=== PATIENT | male | born 1975 | race Caucasian/White ===

== ENCOUNTER 2017-01-29 15:22 | Observation (INO) | payer MEDICARE ==
[2017-01-29 15:59] LABS: #Basophils 0.1 thou/uL (0.0-0.2); #Eosinphils 0.3 thou/uL (0.0-0.7); #Lymphocytes 3.2 thou/uL (1.20-3.40); #Monocytes 0.8 thou/uL (0.11-0.59); #Neutrophils 6.5 thou/uL (1.40-6.50); %Basophils 0.9 % (0.0-1.0); %Eosinophils 2.4 % (0.0-10.0); %Lymphocytes 29.7 % (21.0-51.0); %Monocytes 6.9 % (0.0-10.0); Hematocrit 50.3 % (42.0-52.0); Mean Platelet Volume 6.2 fL (7.4-10.4); Red Blood Cell (RBC) Count 5.35 mill/uL (4.70-6.10); White Blood Cell (WBC) Count 10.8 thou/uL (4.8-10.8)
--- NOTE | 2017-01-29 16:18 | RAD ---
RADIOGRAPH CHEST 1 VIEW: HISTORY: 41-year-old male with acute chest pain. FINDINGS: There is no air space density, pulmonary edema, or pneumothorax. The lateral costophrenic angles are sharp. There is a single lead left subclavian AICD. IMPRESSION: 1. No acute pulmonary findings. 2. Automatic implantable cardioverter-defibrillator. steph POS: CATE
[2017-01-29 16:33] LABS: Troponin I Less than 0.010 ng/mL (< 0.028)
[2017-01-29 16:36] LABS: ALT (SGPT) 24 U/L (8-55); AST (SGOT) 28 U/L (5-34); Alkaline Phosphatase 66 U/L (40-150); Anion Gap 12 mmol/L (10-20); BUN (Urea Nitrogen) 11 mg/dL (8.9-20.6); Bilirubin, Total 0.3 mg/dL (0.2-1.2); CK (CPK) 96 U/L (30-200); Calc. Creatinine Clearance 0 mL/min (70-130); Calcium 9.7 mg/dL (7.8-10.44); Carbon Dioxide 23 mmol/L (22-29); Chloride 103 mmol/L (98-107); Estimated GFR-MDRD Greater than 90; Globulin 3.4 g/dL (2.4-3.5); Lipase 14 U/L (8-78); Protein, Total 7.4 g/dL (6.0-8.3)
[2017-01-29 17:36] LABS: Amphetamine Not Detected (NotDetected); Methadone Not Detected (NotDetected); Methamphetamine Not Detected (NotDetected)
[2017-01-29] MEDS ORDERED: Guaifenesin DM 100-10/5 ML UDCUP PO PRN (17:53)
[2017-01-29] MEDS ORDERED: Acetaminophen 325 MG TAB PO PRN (17:53)
[2017-01-29] MEDS ORDERED: Calcium Carbonate 500 MG ChewTAB PO PRN (17:53)
[2017-01-29] MEDS ORDERED: Nitroglycerin 0.4 MG TAB (25 Tab Bottle) PO PRN (17:53)
[2017-01-29] MEDS ORDERED: clonazePAM 0.5 MG TAB PO PRN (17:53)
[2017-01-29 18:56] VITALS: BMI 36.9
[2017-01-29 19:42] LABS: Troponin I Less than 0.010 ng/mL (< 0.028)
[2017-01-29] MEDS ORDERED: Morphine 4 MG/ML VIAL SLOW IVP PRN (19:52)
[2017-01-29] MEDS: Nitroglycerin 2% Ointment 1 INCH/1 GM Packet TOP SCH (20:30)
[2017-01-29] MEDS: Famotidine 20 MG TAB PO SCH (20:32)
[2017-01-29] MEDS: Sacubitril 49 MG/Valsartan 51 MG TABLET PO SCH (20:51)
[2017-01-29] MEDS ORDERED: Dronedarone HCl 400 MG TAB PO SCH (21:00)
--- NOTE | 2017-01-29 22:14 | HP ---
REASON FOR ADMISSION: Chest pain. HISTORY OF PRESENT ILLNESS: The patient gives history of having left-sided chest pain starting at 10:30 in the morning. This was getting worse with him moving around, but when he lay still, he had relief. No cough or expectoration. Patient states he is active and walks. He has a Fitbit monitor and states he takes nearly 3000 to 4000 steps every day. Patient has known history of cardiomyopathy with EF of around 35%. No complaints of palpitations , PND, or orthopnea. PAST MEDICAL AND SURGICAL HISTORY: History of cardiomyopathy with EF of around 35%, chronic atrial fibrillation, hypertension, bipolar disorder, obesity, prior cardiac catheterization done in 2012. He has had prior ablation for his atrial fibrillation, tonsillectomy, defibrillator, history of PTSD. CURRENT MEDICATIONS: Multaq 400 mg p.o. twice daily, venlafaxine extended release 75 mg p.o. daily, Entresto 49/51 mg p.o. twice daily, clonazepam 0.5 mg p.o. twice daily p.r.n., aspirin 81 mg p.o. daily, Naprosyn p.r.n. for pain, Coreg 3.125 mg p.o. twice daily, spironolactone 25 mg p.o. daily, Pepcid 20 mg p.o. twice daily, aripiprazole 10 mg p.o. daily. ALLERGIES: No known drug allergies. PERSONAL HISTORY: Smokes half pack a day, does not abuse alcohol or drugs. Quit abusing methamphetamine from 1997. He has used it for nearly 5 years prior to that. FAMILY HISTORY: Mother is healthy. He does not know much about his father. His uncles have history of heart disease. REVIEW OF SYSTEMS: The following complete review of systems was negative, unless otherwise mentioned in the HPI or below: Constitutional: Weight loss or gain, ability to conduct usual activities. Skin: Rash, itching. Eyes: Double vision, pain. ENT/Mouth: Nose bleeding, neck stiffness, pain, tenderness. Cardiovascular: Palpitations, dyspnea on exertion, orthopnea. Respiratory: Shortness of breath, wheezing, cough, hemoptysis, fever or night sweats. Gastrointestinal: Poor appetite, abdominal pain, heartburn, nausea, vomiting, constipation, or diarrhea. Genitourinary: Urgency, frequency, dysuria, nocturia. Musculoskeletal: Pain, swelling. Neurologic/Psychiatric: Anxiety, depression. Allergy/Immunologic: Skin rash, bleeding tendency. PHYSICAL EXAMINATION: GENERAL: Patient is a 41-year-old male who is currently not in any acute distress. VITAL SIGNS: Blood pressure 110/74, pulse 90 per minute, respiratory rate 20 per minute, temperature 98.2 degrees Fahrenheit, saturating 99% on room air. NECK: Supple. No elevated JVD. HEENT: Extraocular muscles intact. Pupils reacting to light. Oral cavity, mucous membranes are moist. No exudates or congestion. CARDIOVASCULAR: S1, S2 heard. Regular rhythm. RESPIRATORY: Air entry 1+ bilateral. No rales or rhonchi. ABDOMEN: Soft, bowel sounds heard. No tenderness, rigidity, or guarding. EXTREMITIES: No peripheral edema or calf tenderness. VASCULAR SYSTEM: Peripheral pulses 1+ bilateral. No ischemic ulcerations or gangrene. CENTRAL NERVOUS SYSTEM: No gross focal deficits seen. Patient is alert, awake , oriented x3. PSYCHIATRIC: The patient's mood is euthymic. No hallucinations or delusions. LABORATORY AND X-RAY FINDINGS: EKG done shows normal sinus rhythm at 92 beats per minute. There are Q-waves seen in V1, V2, V3 with poor R-wave progression. Urine drug screen is negative. Chest x-ray done shows no acute pulmonary findings. Sodium 134, potassium 4.4. Serum bicarbonate is 23, BUN 11, creatinine 0.9, glucose 99. Liver enzymes within normal limits. Cardiac enzymes are negative. Albumin is 4. Lipase is 14. White count of 10, H and H 17 and 50, platelet count 327, MCV is 93 with 60% neutrophils. CLINICAL IMPRESSION AND PLAN: The patient will be under observation on telemetry for chest pain, rule out acute coronary syndrome. The patient has known history of nonischemic cardiomyopathy with EF of around 35%. We will continue his home medications including Entresto, spironolactone, Multaq, Coreg , aspirin, Abilify, venlafaxine as before. We will obtain two more sets of cardiac enzymes and most likely the patient can be discharged in the morning when he is more stable. He follows up with Dr. Park wool grower at [facility] and has had a followup 2 months back. We will continue to closely monitor him on telemetry for any arrhythmias. CELINA
[2017-01-29 22:22] LABS: Troponin I Less than 0.010 ng/mL (< 0.028)
[2017-01-30] MEDS: Nitroglycerin 2% Ointment 1 INCH/1 GM Packet TOP SCH ×2 (02:48→09:20)
[2017-01-30 04:35] VITALS: TEMP 98
[2017-01-30 05:03] LABS: #Basophils 0.1 thou/uL (0.0-0.2); #Eosinphils 0.3 thou/uL (0.0-0.7); #Lymphocytes 3.5 thou/uL (1.20-3.40); #Monocytes 0.9 thou/uL (0.11-0.59); #Neutrophils 6.2 thou/uL (1.40-6.50); %Basophils 0.9 % (0.0-1.0); %Eosinophils 3.1 % (0.0-10.0); %Lymphocytes 31.7 % (21.0-51.0); Hematocrit 47.1 % (42.0-52.0); Mean Platelet Volume 6.2 fL (7.4-10.4); Red Blood Cell (RBC) Count 4.98 mill/uL (4.70-6.10); White Blood Cell (WBC) Count 11.1 thou/uL (4.8-10.8)
[2017-01-30 05:33] LABS: Anion Gap 9 mmol/L (10-20); BUN (Urea Nitrogen) 13 mg/dL (8.9-20.6); Calc. Creatinine Clearance 175 mL/min (70-130); Calcium 9.4 mg/dL (7.8-10.44); Carbon Dioxide 28 mmol/L (22-29); Chloride 104 mmol/L (98-107); Cholesterol 173 mg/dl (< 200 Desired); Estimated GFR-MDRD 86; LDL Cholesterol, Calculated 115 mg/dL
[2017-01-30] MEDS ORDERED: Carvedilol 3.125 MG TAB PO SCH (08:00)
[2017-01-30] MEDS ORDERED: Dronedarone HCl 400 MG TAB PO SCH (08:00)
[2017-01-30] MEDS ORDERED: Spironolactone 25 MG TAB PO SCH (08:00)
[2017-01-30 08:20] VITALS: BP 113/66
[2017-01-30] MEDS ORDERED: Venlafaxine HCl XR 75 MG CAP PO SCH (09:00)
[2017-01-30] MEDS ORDERED: Aspirin 325 MG TAB PO SCH (09:00)
[2017-01-30] MEDS ORDERED: Enoxaparin Sodium 40 MG/0.4 ML SYRINGE SC SCH (09:00)
[2017-01-30] MEDS ORDERED: Aripiprazole 10 MG TAB PO SCH (09:00)
[2017-01-30] MEDS: Sacubitril 49 MG/Valsartan 51 MG TABLET PO SCH (09:18)
[2017-01-30] MEDS: Famotidine 20 MG TAB PO SCH (09:19)
--- NOTE | 2017-01-30 12:07 | PDOC.PN ---
- Subjective Encounter Start Date: 01/30/17 Encounter Start Time: 08:30 Subjective: no further chest pain -: feels better - Objective MAR Reviewed: Yes Vital Signs & Weight: Vital Signs (12 hours) Temp Pulse Resp BP Pulse Ox 01/30/17 08:00 98.0 F 64 16 01/30/17 07:53 98.0 F 64 16 113/66 96 01/30/17 04:34 98.0 F 61 16 103/59 L 94 L I&O: 01/29/17 01/30/17 01/31/17 06:59 06:59 06:59 Intake Total 240 Output Total 600 Balance 240 -600 Result Diagrams: 01/30/17 04:32 01/30/17 04:32 Phys Exam - Physical Examination HEENT: PERRLA, moist MMs Neck: no JVD, supple Respiratory: no wheezing, no rales Cardiovascular: RRR, no significant murmur Gastrointestinal: soft, non-tender, positive bowel sounds Musculoskeletal: no edema, pulses present Neurological: non-focal, moves all 4 limbs Psychiatric: A&O x 3 Dx/Plan (1) Chest pain Code(s): R07.9 - CHEST PAIN, UNSPECIFIED Status: Resolved Qualifiers: Chest pain type: unspecified Qualified Code(s): R07.9 - Chest pain, unspecified (2) HTN (hypertension) Code(s): I10 - ESSENTIAL (PRIMARY) HYPERTENSION Status: Chronic Qualifiers: Hypertension type: essential hypertension Qualified Code(s): I10 - Essential (primary) hypertension (3) Obesity (BMI 30-39.9) Code(s): E66.9 - OBESITY, UNSPECIFIED Status: Chronic (4) Cardiomyopathy Code(s): I42.9 - CARDIOMYOPATHY, UNSPECIFIED Status: Chronic Qualifiers: Cardiomyopathy type: unspecified Qualified Code(s): I42.9 - Cardiomyopathy , unspecified - Plan tropx3 is -ve -: hemostable -: 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
--- NOTE | 2017-01-30 14:33 | DIS ---
DATE OF ADMISSION: 01/29/2017 DATE OF DISCHARGE: 01/30/2017 DISCHARGE DISPOSITION: To home. PRIMARY DISCHARGE DIAGNOSES: Chest pain, which is noncardiac. SECONDARY DISCHARGE DIAGNOSES: History of chronic cardiomyopathy, hypertension, obesity. PROCEDURES DONE DURING HOSPITALIZATION: The patient has had chest x-ray done, which showed no acute infiltrate. H&H 16 and 47 with a platelet count of 304. Troponin x3 was negative. Total cholestero l 173, triglycerides 116, LDL 115. Lipase was 14. Urine drug screen was negative. DISCHARGE MEDICATIONS: The patient to continue all his home medication as before, Abilify 10 mg p.o. daily, aspirin 81 mg p.o. daily, Coreg 3.125 mg p.o. twice daily, Klonopin 0.5 mg p.o. twice daily p .r.n. for anxiety, Multaq 400 mg p.o. twice daily for atrial fibrillation, Pepcid 20 mg twice daily, Naprosyn p.r.n., Entresto 49/51 mg p.o. 1 tab twice daily, spironolactone 25 mg daily, venlafaxine ex tended release 75 mg p.o. daily, albuterol inhaler q.6 hourly p.r.n. ALLERGIES: No known drug allergies. DISCHARGE PLAN: The patient to follow up with his primary care physician in 1 week. BRIEF COURSE DURING HOSPITALIZATION: The patient initially came to ER with complaints of left-sided chest pain. This was worse on moving around. He did not complain of any cough, expectoration or fev er. The patient has known history of cardiomyopathy with EF of around 35%. In view of this, he was under observation on telemetry. His three sets of troponin were negative. EKGs have remained stable with no arrhythmias seen. 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 Fortino urias is hemodynamically stable and will be shortly discharged home. He is on optimal medications for hi s nonischemic cardiomyopathy. Please see a [id number] documentation on [employer] for the day of dis charge.
== END 2017-01-30 12:00 | disposition home or self-care (01) ==
LOC: ERS 15:22 → 2SW 18:14
PROVIDERS: ADMIT Internal Medicine; ATTEND Internal Medicine
DX: R07.89 Other chest pain (principal); I42.9 Cardiomyopathy, unspecified; I50.9 Heart failure, unspecified; I11.0 Hypertensive heart disease with heart failure; I48.2 Chronic atrial fibrillation; F31.9 Bipolar disorder, unspecified; F17.210 Nicotine dependence, cigarettes, uncomplicated; F15.11 Other stimulant abuse, in remission; E66.9 Obesity, unspecified; Z68.37 Body mass index [BMI] 37.0-37.9, adult; Z79.899 Other long term (current) drug therapy; Z86.59 Personal history of other mental and behavioral disorders; Z98.61 Coronary angioplasty status; Z90.49 Acquired absence of other specified parts of digestive tract; Z95.810 Presence of automatic (implantable) cardiac defibrillator; Z98.890 Other specified postprocedural states
CPT/HCPCS: 71010; 80048; 80053; 80061; 80306; 82550; 82553; 83690; 84484 ×2; 85025 ×2; 90732; 93005; 96374; 97139; 99285; G0009; G0378; 36415; 90471; 93010; J2270

== ENCOUNTER 2017-04-11 15:18 | Inpatient (IN) | payer MEDICARE ==
[2017-04-11] MEDS ORDERED: Nitroglycerin 2% Ointment 1 INCH/1 GM Packet ONE (15:43)
[2017-04-11 16:00] LABS: #Basophils 0.1 thou/uL (0.0-0.2); #Eosinphils 0.1 thou/uL (0.0-0.7); #Lymphocytes 2.5 thou/uL (1.20-3.40); #Monocytes 0.9 thou/uL (0.11-0.59); #Neutrophils 7.8 thou/uL (1.40-6.50); %Basophils 0.8 % (0.0-1.0); %Eosinophils 1.1 % (0.0-10.0); %Lymphocytes 22.1 % (21.0-51.0); %Monocytes 7.5 % (0.0-10.0); %Neutrophils 68.4 % (42.0-75.0); Hemoglobin 18.3 g/dL (14.0-18.0); Mean Corpuscular HGB CONC 34.4 g/dL (32.0-36.0); Mean Corpuscular Hemoglobin 31.6 pg (27.0-31.0); Mean Corpuscular Volume 91.9 fl (80.0-94.0); Mean Platelet Volume 6.5 fL (7.4-10.4); Platelet Count 347 thou/uL (130-400); RBC Distribution Width 12.3 % (11.5-14.5); Red Blood Cell (RBC) Count 5.78 mill/uL (4.70-6.10); White Blood Cell (WBC) Count 11.3 thou/uL (4.8-10.8)
[2017-04-11 16:29] LABS: ALT (SGPT) 20 U/L (8-55); AST (SGOT) 17 U/L (5-34); Albumin 4.3 g/dL (3.5-5.0); Alkaline Phosphatase 57 U/L (40-150); Anion Gap 14 mmol/L (10-20); BUN (Urea Nitrogen) 17 mg/dL (8.9-20.6); Bilirubin, Total 0.4 mg/dL (0.2-1.2); Calc. Creatinine Clearance 0 mL/min (70-130); Calcium 9.2 mg/dL (7.8-10.44); Carbon Dioxide 19 mmol/L (22-29); Chloride 106 mmol/L (98-107); Estimated GFR-MDRD 81; Glucose 113 mg/dL (70-105); Potassium 3.7 mmol/L (3.5-5.1); Protein, Total 7.3 g/dL (6.0-8.3); Sodium 135 mmol/L (136-145)
[2017-04-11 16:34] LABS: CKMB 0.6 ng/mL (0-6.6); Troponin I Less than 0.010 ng/mL (< 0.028)
--- NOTE | 2017-04-11 16:39 | RAD ---
PORTABLE CHEST 1 VIEW: DATE: 04/11/17. TIME: 4:01 p.m. HISTORY: Chest pain and atrial fibrillation. FINDINGS: Comparison is made with the exam of 01/29/17. Left-sided AICD remains in place. The heart size is borderline. The lungs are expanded without foca l areas of consolidation, pneumothoraces, jessica pulmonary edema, or pleural effusions. IMPRESSION: No radiographic evidence of acute cardiopulmonary process. POS: OFF
[2017-04-11 17:21] LABS: Magnesium 1.9 mg/dL (1.6-2.6); Phosphorus 2.2 mg/dL (2.3-4.7)
[2017-04-11] MEDS ORDERED: Magnesium Sulfate 2 GM/100 ML BAG ONE (17:25)
[2017-04-11] MEDS ORDERED: Diltiazem 125 MG in Sodium Chloride 0.9% 100 ML IVPB SCH (17:30)
--- NOTE | 2017-04-11 21:25 | PDOC.PN ---
- Subjective Encounter Start Date: 04/11/17 Encounter Start Time: 18:00 Patient seen and examined. - Objective MAR Reviewed: Yes Result Diagrams: 04/11/17 15:52 04/11/17 15:52 Additional Labs: Laboratory Tests 04/11/17 04/11/17 04/11/17 15:52 15:52 18:57 Phosphorus 2.2 L Magnesium 1.9 Troponin I Less than 0.010 0.010 Laboratory Tests 04/11/17 15:52 D-Dimer Less than 0.27 L Radiology Reviewed by me: Yes (CXR - SR) EKG Reviewed by me: Yes (Aflutter/Afib with RVR) Phys Exam - Physical Examination Constitutional: NAD HEENT: PERRLA, moist MMs, sclera anicteric Neck: no nodes, no JVD, supple Respiratory: no wheezing, no rales, no rhonchi, clear to auscultation bilateral Cardiovascular: no rub, irregular No heaves/pulsations Gastrointestinal: soft, non-tender, no distention, positive bowel sounds Musculoskeletal: no edema Neurological: non-focal, normal sensation, moves all 4 limbs Psychiatric: normal affect, A&O x 3 Skin: no rash Dx/Plan - Plan * Dictated Review of Systems - Review of Systems Constitutional: negative: fever, chills, sweats, weakness, malaise Eyes: negative: Pain, Vision Change, Conjunctivae Inflammation, Eyelid Inflammation, Redness ENT: negative: Ear Pain, Ear Discharge, Nose Pain, Nose Discharge, Nose Congestion, Mouth Pain, Mouth Swelling, Throat Pain, Throat Swelling, Other Respiratory: negative: Cough, Dry, Shortness of Breath, Hemoptysis, SOB with Excertion, Pleuritic Pain, Sputum, Wheezing Cardiovascular: chest pain, palpitations, light headedness. negative: orthopnea , paroxysmal nocturnal dyspnea, edema Gastrointestinal: negative: Nausea, Vomiting, Abdominal Pain, Diarrhea, Constipation, Melena, Hematochezia Genitourinary: negative: Dysuria, Frequency, Incontinence, Hematuria, Retention Musculoskeletal: negative: Neck Pain, Shoulder Pain, Arm Pain, Back Pain, Hand Pain, Leg Pain, Foot Pain Skin: negative: Rash, Lesions, Luciano, Bruising, Other Neurological: negative: Weakness, Numbness, Incoordination, Change in Speech, Confusion, Seizures - Medications/Allergies Allergies/Adverse Reactions: Allergies Allergy/AdvReac Type Severity Reaction Status Date / Time No Known Allergies Allergy Verified 01/29/17 18:22 Medications: Current Medications Diltiazem HCl 125 mg/ Sodium (Chloride) 125 mls @ 5 mls/hr IVPB INF MONSE; 5 MG/ HR PRN Reason: Protocol Phosphorus (Kphos Neutral) 500 mg PO QID-WM MONSE
[2017-04-11] MEDS ORDERED: Ondansetron PF 4 MG/2 ML Vial IVP PRN (21:34)
[2017-04-11] MEDS ORDERED: Ondansetron ODT 4 MG TAB SL PRN (21:34)
[2017-04-11] MEDS ORDERED: Acetaminophen 325 MG TAB PO PRN ×2 (21:34→21:42)
[2017-04-11] MEDS ORDERED: Senokot 8.6 MG TAB PO PRN (21:42)
[2017-04-11] MEDS ORDERED: Nitroglycerin 0.4 MG TAB (25 Tab Bottle) PO PRN (21:42)
[2017-04-11] MEDS ORDERED: Mag-Al 1200 mg/1200 mg/30 ML UDCUP PO PRN (21:42)
[2017-04-11] MEDS ORDERED: Calcium Carbonate 500 MG ChewTAB PO PRN (21:42)
[2017-04-11] MEDS ORDERED: Milk Of Magnesia 30 ML UDCUP PO PRN (21:42)
[2017-04-11] MEDS ORDERED: Apixaban 5 MG TAB PO SCH (21:45)
[2017-04-11] MEDS ORDERED: Amiodarone 200 MG TAB PO SCH (21:45)
--- NOTE | 2017-04-11 22:10 | HP ---
DATE OF ADMISSION: 04/11/2017 PRIMARY CARE PHYSICIAN: Dr. Capellan. PRIMARY LOCATION DIRECTOR: Dr. Park at [facility]. REASON FOR COMPLAINT: Chest discomfort. HISTORY OF PRESENT ILLNESS: Patient is a 41-year-old male with chronic systolic heart failure, statu s post AICD, paroxysmal atrial fibrillation on anticoagulation, hypertension, and bipolar disorder pr esented to the emergency room with chest discomfort. The chest discomfort started last night around 10:00 p.m. and has been constant since then. He also had palpitations with some lightheadedness and nausea. He felt short of breath on [id number] e xertion. The chest discomfort was substernal, 4/10. He denies recent immobilization, travel. He is compliant with all of his medications. He was recently admitted to [facility] and was discharg ed home after amiodarone loading. He used to be on amiodarone 200 mg daily that was increased to 200 mg b.i.d. PAST MEDICAL HISTORY: 1. Paroxysmal atrial fibrillation on anticoagulation. 2. Chronic systolic heart failure, ejection fraction around 35%. 3. Hypertension. 4. Gastroesophageal reflux disease. 5. Bipolar disorder. 6. Post-traumatic stress disorder. PAST SURGICAL HISTORY: 1. Ablation for atrial fibrillation. 2. Tonsillectomy. 3. Defibrillator placement. 4. Cardiac catheterization. ALLERGIES: No known drug allergies. CURRENT HOME MEDICATIONS: To be verified. Patient does not remember all of his home medications. Fortino urias is on amiodarone 200 mg b.i.d. and Eliquis 5 mg b.i.d. SOCIAL HISTORY: He has a history of methamphetamine abuse in the past. Smokes up to half pack a day . Denies any current use of alcohol or drug use. FAMILY HISTORY: One of the family members with heart disease. His mother is healthy. Review of systems, physical examination, laboratory findings, radiology finding, please refer to my p rogress note from today. IMPRESSION: 1. Atrial fibrillation/flutter with rapid ventricular response. 2. Chest discomfort secondary to #1. 3. History of paroxysmal atrial fibrillation on anticoagulation. 4. Chronic systolic heart failure, status post AICD. 5. Nonischemic cardiomyopathy. 6. Bipolar disorder. 7. Hypertension. 8. Post-traumatic stress disorder. PLAN: Patient will be monitored on the telemetry unit. Cardizem drip will be started. Patient has currently been seen by electrophysiology, Dr. Joyner. We will replace his electrolytes. We will sherry nue Cardizem drip. We will continue Eliquis and amiodarone. Confirm other home medications. Patien t will be kept n.p.o. past midnight for possible cardioversion. Plan of care was discussed with patient in detail. He stated understanding. Patient will require 2 days for stabilization.
[2017-04-11] MEDS: K-Phos Neutral 250 MG TAB PO SCH (22:38)
[2017-04-11] MEDS: HYDROcodone/Acetaminophen 5/325 mg Tablet PO PRN (22:40)
[2017-04-11 23:12] VITALS: BMI 36.2
[2017-04-12 05:01] LABS: Troponin I 0.011 ng/mL (< 0.028)
[2017-04-12 05:02] LABS: Albumin 3.8 g/dL (3.5-5.0); Anion Gap 13 mmol/L (10-20); BUN (Urea Nitrogen) 19 mg/dL (8.9-20.6); BUN/Creatinine Ratio 22.89; Calc. Creatinine Clearance 193 mL/min (70-130); Calcium 8.9 mg/dL (7.8-10.44); Carbon Dioxide 20 mmol/L (22-29); Chloride 107 mmol/L (98-107); Estimated GFR-MDRD Greater than 90; Glucose 81 mg/dL (70-105); Phosphorus 4.6 mg/dL (2.3-4.7); Potassium 4.1 mmol/L (3.5-5.1); Sodium 136 mmol/L (136-145)
--- NOTE | 2017-04-12 06:33 | CON ---
DATE OF CONSULTATION: 04/11/2017 ELECTROPHYSIOLOGY CONSULTATION REPORT REFERRING PHYSICIAN: Dr. Moisés Cordova. HISTORY: I am seeing Mr. Thompson at our [facility] ER as an electrophysiology rewards consultant. His problems are: 1. Paroxysmal atrial arrhythmias. A. Prior history of ablation procedure out of town in 2012. B. Rapid heartbeats, possibly ventricular tachycardia versus atrial fibrillation with rapid ventricu lar response, prompting ICD shocks in 06/2016. C. Amiodarone loaded. D. Current admission with palpitations with atrial flutter with 2:1 AV conduction. 2. Chronic systolic congestive heart failure with reduced LVEF. A. LVEF of 25%-30% in the past. B. A 2D echo from 06/25/2016 reveals LVEF of 35%-40% by our echo at this hospital, moderate MR, mild to moderate tricuspid regurgitation. C. The patient's LVEF improved to normal range. 3. Chronic anticoagulation with Eliquis without interruption. 4. Coronary artery risk factors. A. Hypertension. B. Obesity 5. History of asthma on Albuterol. 6. History of anxiety and depression and bipolar disorder. 7. History of gastroesophageal reflux disease. ALLERGIES: None noted. MEDICATIONS AT HOME: Included Eliquis, amiodarone 200 mg twice a day, please refer to list. SUBJECTIVE: Mr. Thompson was recently hospitalized at [facility] where his usual cardiol ogist is at. He has had palpitations and he was loaded with amiodarone and eventually discharged abo ks 10 days ago with controlled heart rates. Since last night, though his heart rate become rapid aga in and eventually came to our hospital for further care. He seems to be in atrial flutter with rapid rates on presentation. REVIEW OF SYSTEMS: Currently, denies any stroke-like symptoms or bleeding issues, no PND, orthopnea, lower extremity edema, mild chest pains with rapid heart rates, but improving with rate control. Re st of 12-point systems otherwise unremarkable. SOCIAL HISTORY: The patient denies smoking, ETOH or drug use. FAMILY HISTORY: Noncontributory. OBJECTIVE DATA: VITAL SIGNS: Blood pressure is 120/60, heart rate of 117, respirations 12, the patient is afebrile. GENERAL: He is alert and oriented, obese man, in no apparent distress. NECK: Supple. Jugular veins are not distended. CHEST: Coarse without crackles. CARDIOVASCULAR: Heart sounds are regular, but tachycardic. S1, S2 is normal. 1/6 holosystolic murm ur is heard. No gallop is appreciated. PMI is nonpalpable. ABDOMEN: Benign. Bowel sounds are positive. EXTREMITIES: Lower extremities without edema, clubbing or cyanosis. Pulses are adequate. NEUROLOGIC: Patient is nonfocal. MUSCULOSKELETAL: Without joint swelling or deformities. SKIN: Without rash. DATABASE: The EKG currently reveals atrial flutter, possibly atypical atrial flutter with 2:1 AV con duction. LABORATORY DATA: White count is 11.3, hemoglobin 18.3, platelet count is 347. Sodium 135, potassium 3.7, BUN 17, creatinine 1.01. ASSESSMENT AND PLAN: Mr. Thompson is a 41-year-old man with prior history of cardiomyopathy, reduced LVEF, single chamber ICD implant in the past who presented with recurrent palpitations. He has had history of atrial arrhythmias, previously treated with Multaq and more recently with amiodarone since January. His amiodarone dose has just been increased at [facility]. Now, he has a recurrent atrial arrhythmia. We discussed the treatment options at this point. Since he has been well anticoagulated, it is reaso nable to cardiovert him. On the other hand, he likely will not benefit long-term from a higher amiod arone dose. The option to redo left atrial ablation would be reasonable. We will consider as an out patient, we will make arrangements to have that happen after his discharge. 2. We will obtain records from [facility]. 3. Continued anticoagulation with Eliquis. 4. Routine ICD checks.
--- NOTE | 2017-04-12 08:48 | OP ---
DATE OF PROCEDURE: 04/12/2017 CARDIOVERSION REPORT REFERRING PHYSICIAN: Dr. Burciaga REASON FOR PROCEDURE: Mr. Thompson is a 41-year-old male with prior history of persistent atrial fib rillation, cardiomyopathy, improving LV function. Prior history of VT. He has uninterrupted Eliquis on board. He presented with atypical atrial flutter here for cardioversion. PROCEDURE: The patient received a propofol by Anesthesia specialist. After adequate level of sedati on achieved through his pacemaker defibrillator, a 41 joule commanded shock synchronized delivered pr omptly converted him back to sinus rhythm. CONCLUSION: Successful cardioversion. PLAN: Continue on anticoagulation. Continue the use of amiodarone for now. We will plan to proceed with pulmonary venous isolation procedure in the near future as an outpatient.
--- NOTE | 2017-04-12 08:54 | OP ---
DATE OF PROCEDURE: 04/12/2017 PROCEDURE: ICD INTERROGATION REASON FOR INTERROGATION: Mr. Thompson has a history of CHF, but improving LV function, history of I CD implantation in 08/2011. He presented with atrial flutter and has been well anticoagulated withou t interruption. He is undergoing an internal cardioversion. PROCEDURE: This is a [employer] Integrity ICD single chamber ICD. Battery longevity is still at the beginning of life. Also longevity remaining is about 8 years. Lead parameters are adequate with a sensing of 0.7 millivolts. The capture threshold 0.1 with 0.4 milliseconds, impedance 601 ohm s. The patient had no sustained ventricular tachyarrhythmia since June. Nonsustained VT events corre late to irregular, possible atrial fibrillation with RVR sensing. PLAN: 1. Proceed with the internal cardioversion. 2. The patient programmed to detect ventricular fibrillation 240 milliseconds for therapy.
[2017-04-12] MEDS ORDERED: Amiodarone 200 MG TAB PO SCH (09:00)
[2017-04-12] MEDS ORDERED: Apixaban 5 MG TAB PO SCH (09:00)
[2017-04-12] MEDS: K-Phos Neutral 250 MG TAB PO SCH ×2 (09:57→13:48)
[2017-04-12] MEDS: HYDROcodone/Acetaminophen 5/325 mg Tablet PO PRN (09:59)
--- NOTE | 2017-04-12 12:43 | CT ---
CT ANGIOGRAM CHEST WITH AND WITHOUT CONTRAST: HISTORY: Atrial fibrillation, assess the left atrium. Preop study for ablation. COMPARISON: None. FINDINGS: The visualized portions of the lungs are unremarkable. Aortic contour is normal. The right coronary artery emanates in the right coronary cusp and left coronary artery and lays in the left coronary cu sp. There is adequate opacification of the right coronary and left coronary arteries as well as the left circumflex and anterior descending coronary arteries. The left atrium is patent. No thrombus formation. No pericardial effusion. IMPRESSION: CTA of the chest for preop planning. POS: CYDNEY
[2017-04-12] MEDS ORDERED: Iopamidol 370 76% 100 ML VIAL ONE (13:10)
[2017-04-12] MEDS ORDERED: Lidocaine 1% PF 5 ML VIAL ONE (16:16)
[2017-04-12] MEDS ORDERED: PROPOFOL 200 MG/20 ML VIAL ONE (16:16)
[2017-04-12 19:55] VITALS: BP 108/54; TEMP 97.4
--- NOTE | 2017-04-12 22:08 | DIS ---
DATE OF ADMISSION: 04/11/2017 DATE OF DISCHARGE: 04/12/2017 DISCHARGE DISPOSITION: Home. FOLLOWUP: 1. Follow up with primary care physician, Dr. Capellan in 1 week. 2. Follow up with Electrophysiology, Dr. Joyner as scheduled. ALLERGIES: No known drug allergies. INPATIENT CONSULTANTS: Mary[place], Dr. Joyner. INPATIENT PROCEDURES: On 04/12/2017, patient underwent cardioversion after ICD interrogation. BRIEF HOSPITAL COURSE: The patient is a 41-year-old male with paroxysmal atrial fibrillation on anti coagulation, chronic systolic heart failure, ejection fraction around 35% and hypertension who presen paolo to the emergency room with chest discomfort. Please refer to the history and physical dated 03/17 for further details. The patient was admitted to the hospital with a diagnosis of chest discomfort secondary to atrial fib rillation/flutter with rapid ventricular response. Patient was seen by electrophysiology, Dr. Joyner. Amiodarone dose was continued. He also remained on anticoagulation. He underwent cardioversion by Electrophysiology. He is in sinus rhythm. He was placed on Cardizem drip on admission that was late r discontinued. He will be discharged home on his same medications including Eliquis and amiodarone. FINAL DIAGNOSES: 1. Chest discomfort secondary to atrial flutter/fibrillation with rapid ventricular response, status post cardioversion this admission. 2. History of paroxysmal atrial fibrillation on anticoagulation. 3. Chronic systolic heart failure, status post AICD. 4. Nonischemic cardiomyopathy. 5. Bipolar disorder. 6. Hypertension. 7. Posttraumatic stress disorder. 8. Hypophosphatemia, replaced. 9. Hyponatremia. 10. Obesity with a BMI 36.3. Plan of care was discussed with the patient. He stated understanding.
== END 2017-04-12 17:08 | disposition home or self-care (01) | DRG 309 ==
LOC: ERS 15:18 → 2NO 19:48
PROVIDERS: ADMIT Internal Medicine; ATTEND Internal Medicine
PROC: 4B02XTZ Measurement of Cardiac Defibrillator, External Approach (ICD-10-PCS; principal; 2017-04-12)
PROC: 5A2204Z Restoration of Cardiac Rhythm, Single (ICD-10-PCS; 2017-04-12)
DX: I48.0 Paroxysmal atrial fibrillation (principal); I50.22 Chronic systolic (congestive) heart failure; I42.9 Cardiomyopathy, unspecified; I48.4 Atypical atrial flutter; I11.0 Hypertensive heart disease with heart failure; E83.39 Other disorders of phosphorus metabolism; E87.1 Hypo-osmolality and hyponatremia; I08.1 Rheumatic disorders of both mitral and tricuspid valves; Z79.01 Long term (current) use of anticoagulants; Z95.810 Presence of automatic (implantable) cardiac defibrillator; F31.9 Bipolar disorder, unspecified; F43.10 Post-traumatic stress disorder, unspecified; E66.9 Obesity, unspecified; Z68.36 Body mass index [BMI] 36.0-36.9, adult; K21.9 Gastro-esophageal reflux disease without esophagitis; F17.210 Nicotine dependence, cigarettes, uncomplicated; F15.11 Other stimulant abuse, in remission
CPT/HCPCS: 36415; 71045; 71275; 80053; 80069; 82553; 83735; 84100; 84484; 85025; 85379; 92960; 93005; 94760; 96365; 96366; 96367; J2001; J2704; J3475; J7050

== ENCOUNTER 2017-04-21 17:34 | Emergency (ER) | payer MEDICARE ==
[2017-04-21 18:00] LABS: #Basophils 0.1 thou/uL (0.0-0.2); #Eosinphils 0.2 thou/uL (0.0-0.7); #Lymphocytes 3.4 thou/uL (1.20-3.40); #Monocytes 1.1 thou/uL (0.11-0.59); #Neutrophils 7.7 thou/uL (1.40-6.50); %Eosinophils 1.2 % (0.0-10.0); %Lymphocytes 27.2 % (21.0-51.0); %Monocytes 8.6 % (0.0-10.0); Hemoglobin 18.5 g/dL (14.0-18.0); Mean Corpuscular HGB CONC 34.2 g/dL (32.0-36.0); Mean Corpuscular Hemoglobin 31.7 pg (27.0-31.0); Mean Corpuscular Volume 92.7 fl (80.0-94.0); Mean Platelet Volume 6.4 fL (7.4-10.4); Platelet Count 391 thou/uL (130-400); RBC Distribution Width 12.5 % (11.5-14.5); Red Blood Cell (RBC) Count 5.82 mill/uL (4.70-6.10); White Blood Cell (WBC) Count 12.4 thou/uL (4.8-10.8)
[2017-04-21 18:25] LABS: ALT (SGPT) 25 U/L (8-55); AST (SGOT) 19 U/L (5-34); Albumin 4.6 g/dL (3.5-5.0); Alkaline Phosphatase 60 U/L (40-150); Anion Gap 13 mmol/L (10-20); BUN (Urea Nitrogen) 16 mg/dL (8.9-20.6); Bilirubin, Total 0.3 mg/dL (0.2-1.2); CK (CPK) 73 U/L (30-200); Calc. Creatinine Clearance 0 mL/min (70-130); Calcium 10.2 mg/dL (7.8-10.44); Carbon Dioxide 26 mmol/L (22-29); Chloride 103 mmol/L (98-107); Estimated GFR-MDRD 70; Globulin 3.4 g/dL (2.4-3.5); Glucose 99 mg/dL (70-105); Potassium 4.6 mmol/L (3.5-5.1); Sodium 137 mmol/L (136-145)
[2017-04-21 18:29] LABS: CKMB 0.7 ng/mL (0-6.6); Troponin I Less than 0.010 ng/mL (< 0.028)
--- NOTE | 2017-04-21 18:51 | RAD ---
PORTABLE CHEST ONE VIEW 04/21/17 at 6:10 p.m. HISTORY: Chest pain, located mid sternum. FINDINGS: Comparison made with the exam of 04/11/17. The heart size is borderline. Left sided AICD remains in place. The lungs are well expanded without f ocal areas of consolidation, pneumothorax or pleural effusions. There is no evidence of jessica pulmona ry edema. IMPRESSION: No radiographic evidence of acute cardiopulmonary process. POS: H
== END 2017-04-21 20:55 | disposition home or self-care (01) ==
LOC: ERS 17:34
DX: I48.91 Unspecified atrial fibrillation (principal); F31.9 Bipolar disorder, unspecified; F43.10 Post-traumatic stress disorder, unspecified; F17.210 Nicotine dependence, cigarettes, uncomplicated; Z79.82 Long term (current) use of aspirin; Z71.6 Tobacco abuse counseling; Z79.01 Long term (current) use of anticoagulants; Z79.899 Other long term (current) drug therapy; I50.9 Heart failure, unspecified
CPT/HCPCS: 71045; 80053; 82550; 82553; 83735; 84484; 85025; 93005; 96361; 96365; 96376; 99406; J7050